=== PATIENT | male | born 1955 | race Caucasian/White ===

== ENCOUNTER 2018-06-29 16:08 | Emergency (ER) | payer MEDICAID ==
[~2018-06-29] VITALS: Ht 162.6 cm; Wt 90.0 kg
[2018-06-29] MEDS ORDERED: LIDOCAINE HCL 2% JELLY 5ML TOP ONE (21:45)
[2018-06-29] MEDS ORDERED: ACETAMINOPHEN WITH CODEINE 300/30MG TABLET PO ONE (23:00)
[2018-06-30 00:29] VITALS: BP 144/76
== END 2018-06-30 00:33 | disposition home or self-care (01) ==
LOC: ER 16:08
DX: K64.9 Unspecified hemorrhoids (principal); N49.2 Inflammatory disorders of scrotum; I10 Essential (primary) hypertension
CPT/HCPCS: 99283

== ENCOUNTER 2018-07-12 13:12 | Emergency (ER) | payer MEDICAID ==
[~2018-07-12] VITALS: Ht 165.1 cm; Wt 84.0 kg
[2018-07-12 13:31] VITALS: BP 141/91
[2018-07-12] MEDS ORDERED: SULFAMETHOXAZOLE/TRIMETHOPRIM 800/160MG TABLET PO ONE (16:00)
[2018-07-12] MEDS ORDERED: HEMORRHOIDAL SUPP PR ONE (16:00)
== END 2018-07-12 16:33 | disposition home or self-care (01) ==
LOC: ER 13:12
DX: K64.8 Other hemorrhoids (principal); K61.0 Anal abscess; I10 Essential (primary) hypertension
CPT/HCPCS: 99283

== ENCOUNTER 2018-09-28 20:45 | Emergency (ER) | payer MEDICAID ==
[~2018-09-28] VITALS: Ht 165.1 cm; Wt 86.0 kg
[2018-09-28] MEDS ORDERED: KETOROLAC 15MG/ML VIAL IM ONE (21:45)
[2018-09-28] MEDS ORDERED: KETOROLAC 30MG/ML VIAL IM ONE (21:45)
[2018-09-28] MEDS ORDERED: METHYLPREDNISOLONE SOD SUCC 125 MG/2 ML VIAL IM ONE (21:45)
[2018-09-28 22:45] VITALS: BP 138/88
== END 2018-09-28 22:45 | disposition home or self-care (01) ==
LOC: ER 20:45
DX: B02.29 Other postherpetic nervous system involvement (principal); I10 Essential (primary) hypertension
CPT/HCPCS: 96372; 99283; J1885; J2930

== ENCOUNTER 2020-03-29 19:54 | Inpatient (IN) | payer MEDICAID ==
[~2020-03-29] VITALS: Ht 152.4 cm; Wt 63.5 kg
[2020-03-29] MEDS ORDERED: IBUPROFEN 600MG TABLET PO ONE (23:30)
[2020-03-30] MEDS ORDERED: ACETAMINOPHEN 325MG TABLET PO ONE ×2 (03:30→09:45)
[2020-03-30] MEDS ORDERED: KETOROLAC 60MG/2ML VIAL IM ONE (17:45)
[2020-03-31] MEDS ORDERED: IBUPROFEN 800MG TABLET PO ONE (09:00)
[2020-03-31] MEDS ORDERED: ACETAMINOPHEN 500MG TABLET PO ONE (09:00)
[2020-03-31 13:43] LABS: BASOPHILS % 1.5 % (0.0-2.0); EOSINOPHILS % 1.7 % (0.0-5.0); HEMATOCRIT. 35.6 % (42.0-52.0); HEMOGLOBIN. 11.7 g/dL (14.0-18.0); MEAN CORPUSCULAR HEMOGLOBIN 27.1 pg (28.0-32.0); MEAN CORPUSCULAR VOLUME 82.2 fL (80.0-94.0); MEAN PLATELET VOLUME 8.2 fl (7.4-10.4); MONOCYTES % 11.5 % (2.0-8.0); NEUTROPHILS % 68.3 % (40.0-76.0); PLATELET 73 x1000/uL (130-400); RED BLOOD CELL COUNT 4.33 mill/uL (4.7-6.1)
[2020-03-31 13:51] LABS: CHLORIDE 93 mEq/L (98-107)
[2020-03-31 13:57] LABS: INR 1.2; PROTHROMBIN TIME 13.4 sec (9.6-11.0)
[2020-03-31] MEDS ORDERED: ONDANSETRON HCL 4MG/2ML INJ IV PRN (15:15)
[2020-03-31] MEDS ORDERED: TRAMADOL 50MG TABLET PO PRN (15:15)
[2020-03-31] MEDS ORDERED: POTASSIUM CHLORIDE 20MEQ TABLET SR PO NR (15:30)
[2020-03-31 17:27] LABS: HEPATITIS B SURFACE ANTIGEN NEGATIVE
[2020-03-31 17:57] LABS: HEPATITIS A AB IGM NEGATIVE (NEGATIVE)
[2020-03-31 18:50] VITALS: BP 114/80
[2020-03-31 20:00] VITALS: BP 137/100
[2020-03-31] MEDS: KETOROLAC 30MG/ML VIAL IV PRN (20:35)
[2020-03-31] MEDS ORDERED: MORPHINE SULFATE 2 MG/ML CPJ (NOT FOR IM USE) IV PRN (23:15)
[2020-04-01] MEDS: SODIUM CHLORIDE 0.9% 1,000 ML IV SCH ×3 (03:04→23:45)
[2020-04-01 04:00] VITALS: BP 100/72
[2020-04-01 08:00] VITALS: BP 112/76
[2020-04-01 12:00] VITALS: BP 96/67
[2020-04-01] MEDS: KETOROLAC 30MG/ML VIAL IV PRN (12:19)
[2020-04-01 16:00] VITALS: BP 111/76
[2020-04-01] MEDS: CHLORDIAZEPOXIDE 25MG CAPSULE PO SCH (17:12)
[2020-04-01 17:38] LABS: HEMATOCRIT. 31.3 % (42.0-52.0); HEMOGLOBIN. 10.4 g/dL (14.0-18.0); MEAN CORPUSCULAR HEMOGLOBIN 27.2 pg (28.0-32.0); MEAN CORPUSCULAR VOLUME 81.7 fL (80.0-94.0); MEAN PLATELET VOLUME 8.3 fl (7.4-10.4); PLATELET 61 x1000/uL (130-400); RED BLOOD CELL COUNT 3.83 mill/uL (4.7-6.1); RED CELL DISTRIBUTION WIDTH 25.5 % (11.6-14.6)
[2020-04-01 17:43] LABS: CHLORIDE 98 mEq/L (98-107)
[2020-04-01 18:03] LABS: PLATELET ESTIMATE DECREASED
[2020-04-01 18:50] LABS: VITAMIN B12 SERUM 782 pg/mL (211-911)
[2020-04-01 19:16] LABS: CLARITY URINE CLOUDY (CLEAR); COLOR URINE ORANGE (YELLOW); KETONES URINE TRACE (NEGATIVE); LEUKOCYTE ESTERASE URINE 1+ (NEGATIVE); NITRITE URINE POSITIVE (NEGATIVE); OCCULT BLOOD URINE NEGATIVE (NEGATIVE); PROTEIN URINE 2+ (NEGATIVE); SPECIFIC GRAVITY URINE 1.027 (1.005-1.030)
[2020-04-01 19:40] LABS: *AMPHETAMINES SCREEN URINE NEGATIVE (NEGATIVE); *BARBITURATES SCREEN URINE NEGATIVE (NEGATIVE); *BENZODIAZEPINES SCREEN URINE PRESUMTIVE POSITIVE (NEGATIVE); *COCAINE SCREEN URINE NEGATIVE (NEGATIVE); CANNABINOID URINE SCREEN NEGATIVE (NEGATIVE); PHENCYCLIDINE URINE SCREEN NEGATIVE (NEGATIVE)
[2020-04-01 19:41] LABS: METHADONE URINE SCREEN NEGATIVE (NEGATIVE); OPIATES URINE SCREEN PRESUMTIVE POSITIVE (NEGATIVE)
[2020-04-01] MEDS ORDERED: POTASSIUM CHLORIDE 20MEQ TABLET SR PO NR (19:53)
[2020-04-01 20:00] VITALS: BP 114/75
[2020-04-02] VITALS: BP 127/90
[2020-04-02] MEDS ORDERED: HALOPERIDOL LACTATE 5MG/ML VIAL IM NR (01:45)
[2020-04-02] MEDS: LORAZEPAM 2MG/ML CPJ IM PRN ×3 (03:38→20:05)
[2020-04-02 04:00] VITALS: BP 156/85
[2020-04-02 08:00] VITALS: BP 150/107
[2020-04-02] MEDS: CHLORDIAZEPOXIDE 25MG CAPSULE PO SCH ×3 (08:38→17:35)
[2020-04-02] MEDS ORDERED: CLONIDINE 0.1MG TABLET PO PRN (10:00)
[2020-04-02] MEDS: AMLODIPINE 10MG TABLET PO SCH (10:35)
[2020-04-02] MEDS: SODIUM CHLORIDE 0.9% 1,000 ML IV SCH (10:46)
[2020-04-02 12:00] VITALS: BP 114/86
[2020-04-02] MEDS ORDERED: VANCOMYCIN HCL 1 GM/VIAL PO SCH (12:00)
[2020-04-02] MEDS: VANCOMYCIN HCL 1000 MG/20 ML ORAL PO SCH ×2 (13:51→17:35)
[2020-04-02] MEDS: KETOROLAC 30MG/ML VIAL IV PRN ×2 (14:03→20:07)
[2020-04-02] MEDS ORDERED: CEFTRIAXONE 1 G PREMIX 50 ML IV SCH (15:00)
[2020-04-02 15:02] LABS: BASOPHILS % 0.9 % (0.0-2.0); EOSINOPHILS % 1.9 % (0.0-5.0); HEMATOCRIT. 32.8 % (42.0-52.0); HEMOGLOBIN. 10.9 g/dL (14.0-18.0); LYMPHOCYTES % 7.7 % (20.0-50.0); MEAN CORPUSCULAR HEMOGLOBIN 27.7 pg (28.0-32.0); MEAN CORPUSCULAR VOLUME 83.2 fL (80.0-94.0); MEAN PLATELET VOLUME 8.3 fl (7.4-10.4); MONOCYTES % 11.5 % (2.0-8.0); PLATELET 97 x1000/uL (130-400); RED BLOOD CELL COUNT 3.95 mill/uL (4.7-6.1); RED CELL DISTRIBUTION WIDTH 25.8 % (11.6-14.6)
[2020-04-02 15:21] LABS: CHLORIDE 103 mEq/L (98-107)
[2020-04-02 16:00] VITALS: BP_SYST 128; BP_SYST 132; BP_DIAS 82; BP_DIAS 94
[2020-04-02 16:02] LABS: PLATELET ESTIMATE DECREASED
[2020-04-02] MEDS ORDERED: POTASSIUM CHLORIDE 20MEQ TABLET SR PO NR (17:00)
[2020-04-02] MEDS ORDERED: POTASSIUM CHLORIDE INJ 40 MEQ in DEXT 5% WATER 500 ML IV NR (18:00)
[2020-04-02 20:00] VITALS: BP 139/103
[2020-04-03] VITALS: BP 133/98
[2020-04-03] MEDS: VANCOMYCIN HCL 1000 MG/20 ML ORAL PO SCH ×4 (01:03→17:29)
[2020-04-03] MEDS: HYDROCODONE/ACETAMINOPHEN 10/325MG TABLET PO PRN ×3 (01:08→18:21)
[2020-04-03 04:00] VITALS: BP 127/95
[2020-04-03 08:00] VITALS: BP 126/86
[2020-04-03] MEDS: CHLORDIAZEPOXIDE 25MG CAPSULE PO SCH ×2 (08:28→12:38)
[2020-04-03] MEDS: AMLODIPINE 10MG TABLET PO SCH (08:29)
[2020-04-03 11:53] VITALS: BP 96/67
[2020-04-03] MEDS: SODIUM CHLORIDE 0.9% 1,000 ML IV SCH (12:44)
[2020-04-03 15:55] LABS: CHLORIDE 105 mEq/L (98-107)
[2020-04-03 16:00] VITALS: BP 86/61
[2020-04-03] MEDS: CEFTRIAXONE 1 G PREMIX 50 ML IV SCH (16:08)
[2020-04-03] MEDS ORDERED: SODIUM CHLORIDE 0.9% 500 ML IV SCH (16:15)
[2020-04-03] MEDS ORDERED: POTASSIUM CHLORIDE 20MEQ TABLET SR PO SCH (17:00)
[2020-04-03] MEDS ORDERED: MAGNESIUM 4 G PREMIX 100 ML IV SCH (18:00)
[2020-04-03 20:00] VITALS: BP 113/71
[2020-04-04] VITALS (8 sets, daily range): BP systolic 123–133; BP diastolic 80–94
[2020-04-04] MEDS: VANCOMYCIN HCL 1000 MG/20 ML ORAL PO SCH ×4 (00:05→17:41)
[2020-04-04] MEDS: SODIUM CHLORIDE 0.9% 1,000 ML IV SCH ×3 (00:07→21:00)
[2020-04-04] MEDS: HYDROCODONE/ACETAMINOPHEN 10/325MG TABLET PO PRN ×4 (00:08→21:20)
[2020-04-04 06:46] LABS: HEMATOCRIT. 32.4 % (42.0-52.0); HEMOGLOBIN. 10.5 g/dL (14.0-18.0); MEAN CORPUSCULAR HEMOGLOBIN 27.1 pg (28.0-32.0); MEAN CORPUSCULAR VOLUME 84.1 fL (80.0-94.0); MEAN PLATELET VOLUME 7.4 fl (7.4-10.4); PLATELET 142 x1000/uL (130-400); RED BLOOD CELL COUNT 3.85 mill/uL (4.7-6.1); RED CELL DISTRIBUTION WIDTH 25.4 % (11.6-14.6)
[2020-04-04 06:49] LABS: CHLORIDE 106 mEq/L (98-107)
[2020-04-04 07:01] LABS: PHOSPHORUS 3.5 mg/dL (2.5-4.9)
[2020-04-04] MEDS ORDERED: POTASSIUM CHLORIDE 20MEQ TABLET SR PO NR (09:00)
[2020-04-04] MEDS: KETOROLAC 30MG/ML VIAL IV PRN (11:44)
[2020-04-04 14:19] LABS: PLATELET ESTIMATE NORMAL
[2020-04-04] MEDS: CEFTRIAXONE 1 G PREMIX 50 ML IV SCH (14:58)
[2020-04-04] MEDS: POTASSIUM CHLORIDE 20MEQ TABLET SR PO SCH (14:58)
[2020-04-05] VITALS: BP 146/85
[2020-04-05] MEDS: LORAZEPAM 2MG/ML CPJ IM PRN (01:41)
[2020-04-05] MEDS: VANCOMYCIN HCL 1000 MG/20 ML ORAL PO SCH ×5 (01:42→23:41)
[2020-04-05 04:00] VITALS: BP 127/90
[2020-04-05] MEDS: SODIUM CHLORIDE 0.9% 1,000 ML IV SCH (07:00)
[2020-04-05 08:00] VITALS: BP 124/88
[2020-04-05] MEDS: POTASSIUM CHLORIDE 20MEQ TABLET SR PO SCH (08:53)
[2020-04-05 12:00] VITALS: BP 130/97
[2020-04-05] MEDS: CEFTRIAXONE 1 G PREMIX 50 ML IV SCH (15:29)
[2020-04-05 16:00] VITALS: BP 110/70
[2020-04-05] MEDS: HYDROCODONE/ACETAMINOPHEN 10/325MG TABLET PO PRN ×2 (18:18→23:40)
[2020-04-05 20:00] VITALS: BP 147/96
[2020-04-06] VITALS: BP 137/95
[2020-04-06 04:00] VITALS: BP 126/82
[2020-04-06] MEDS: HYDROCODONE/ACETAMINOPHEN 10/325MG TABLET PO PRN (05:28)
[2020-04-06] MEDS: SODIUM CHLORIDE 0.9% 1,000 ML IV SCH ×3 (05:32→21:57)
[2020-04-06] MEDS: VANCOMYCIN HCL 1000 MG/20 ML ORAL PO SCH ×3 (05:36→18:45)
[2020-04-06 08:00] VITALS: BP 112/80
[2020-04-06] MEDS: POTASSIUM CHLORIDE 20MEQ TABLET SR PO SCH (08:39)
[2020-04-06 12:00] VITALS: BP 113/86
[2020-04-06] MEDS: CEFTRIAXONE 1 G PREMIX 50 ML IV SCH (15:11)
[2020-04-06] MEDS: ACETAMINOPHEN 325MG TABLET PO PRN ×2 (15:11→22:05)
[2020-04-06 16:00] VITALS: BP 123/93
[2020-04-06 20:00] VITALS: BP 151/97
[2020-04-07] VITALS: BP 153/97
[2020-04-07] MEDS: VANCOMYCIN HCL 1000 MG/20 ML ORAL PO SCH ×4 (01:30→17:39)
[2020-04-07 04:00] VITALS: BP 123/85
[2020-04-07] MEDS: ACETAMINOPHEN 325MG TABLET PO PRN ×3 (05:11→17:39)
[2020-04-07 08:00] VITALS: BP 118/78
[2020-04-07] MEDS: POTASSIUM CHLORIDE 20MEQ TABLET SR PO SCH (09:12)
[2020-04-07] MEDS: SODIUM CHLORIDE 0.9% 1,000 ML IV SCH ×2 (09:14→21:00)
[2020-04-07 12:00] VITALS: BP 120/83
[2020-04-07 16:00] VITALS: BP 105/78
[2020-04-07 20:00] VITALS: BP 155/105
[2020-04-07] MEDS: KETOROLAC 30MG/ML VIAL IV PRN (23:01)
[2020-04-08] VITALS: BP 139/93
[2020-04-08] MEDS: VANCOMYCIN HCL 1000 MG/20 ML ORAL PO SCH ×4 (00:15→18:31)
[2020-04-08 04:00] VITALS: BP 124/89
[2020-04-08] MEDS: SODIUM CHLORIDE 0.9% 1,000 ML IV SCH ×2 (05:00→15:00)
[2020-04-08 08:00] VITALS: BP 149/97
[2020-04-08] MEDS: POTASSIUM CHLORIDE 20MEQ TABLET SR PO SCH (09:46)
[2020-04-08] MEDS: KETOROLAC 30MG/ML VIAL IV PRN ×2 (09:49→18:01)
[2020-04-08 12:00] VITALS: BP 135/91
[2020-04-08 16:00] VITALS: BP 149/99
[2020-04-08 20:00] VITALS: BP 138/90
[2020-04-08] MEDS: HYDROCODONE/ACETAMINOPHEN 10/325MG TABLET PO PRN (21:03)
[2020-04-09] VITALS: BP 145/98
[2020-04-09] MEDS: VANCOMYCIN HCL 1000 MG/20 ML ORAL PO SCH ×3 (00:20→14:14)
[2020-04-09] MEDS: HYDROCODONE/ACETAMINOPHEN 10/325MG TABLET PO PRN ×3 (03:25→16:56)
[2020-04-09] MEDS: SODIUM CHLORIDE 0.9% 1,000 ML IV SCH ×3 (03:29→21:07)
[2020-04-09 04:00] VITALS: BP 138/93
[2020-04-09 08:00] VITALS: BP 128/90
[2020-04-09] MEDS: POTASSIUM CHLORIDE 20MEQ TABLET SR PO SCH (09:52)
[2020-04-09 12:00] VITALS: BP 111/79
[2020-04-09 16:00] VITALS: BP 121/82
[2020-04-09 20:00] VITALS: BP 124/86
[2020-04-09] MEDS: KETOROLAC 30MG/ML VIAL IV PRN (21:07)
[2020-04-10] VITALS: BP 129/100
[2020-04-10] MEDS: HYDROCODONE/ACETAMINOPHEN 10/325MG TABLET PO PRN ×4 (00:38→21:31)
[2020-04-10 04:00] VITALS: BP 120/78
[2020-04-10] MEDS: SODIUM CHLORIDE 0.9% 1,000 ML IV SCH ×2 (06:08→17:16)
[2020-04-10 08:00] VITALS: BP 109/82
[2020-04-10] MEDS: POTASSIUM CHLORIDE 20MEQ TABLET SR PO SCH (08:41)
[2020-04-10 16:00] VITALS: BP 116/82
[2020-04-10 20:00] VITALS: BP 113/78
[2020-04-11] VITALS: BP 106/71
[2020-04-11] MEDS: SODIUM CHLORIDE 0.9% 1,000 ML IV SCH ×2 (03:35→12:14)
[2020-04-11] MEDS: HYDROCODONE/ACETAMINOPHEN 10/325MG TABLET PO PRN ×4 (03:55→22:14)
[2020-04-11 04:00] VITALS: BP 145/94
[2020-04-11 08:00] VITALS: BP 104/73
[2020-04-11] MEDS: POTASSIUM CHLORIDE 20MEQ TABLET SR PO SCH (09:53)
[2020-04-11 12:00] VITALS: BP 99/59
[2020-04-11 16:00] VITALS: BP 106/74
[2020-04-11 20:00] VITALS: BP 114/84
[2020-04-12] VITALS: BP 135/89
[2020-04-12 04:00] VITALS: BP 102/72
[2020-04-12] MEDS: HYDROCODONE/ACETAMINOPHEN 10/325MG TABLET PO PRN ×2 (04:31→12:18)
[2020-04-12 08:00] VITALS: BP 120/81
[2020-04-12] MEDS: POTASSIUM CHLORIDE 20MEQ TABLET SR PO SCH (08:48)
[2020-04-12] MEDS: SODIUM CHLORIDE 0.9% 1,000 ML IV SCH ×2 (08:49→19:00)
[2020-04-12 12:00] VITALS: BP 116/77
[2020-04-12 16:00] VITALS: BP 95/53
[2020-04-12 20:00] VITALS: BP 101/66
[2020-04-12] MEDS: KETOROLAC 30MG/ML VIAL IV PRN (21:16)
[2020-04-13] VITALS: BP 117/74
[2020-04-13 04:00] VITALS: BP 116/70
[2020-04-13 08:00] VITALS: BP 133/80
[2020-04-13] MEDS: POTASSIUM CHLORIDE 20MEQ TABLET SR PO SCH (08:23)
[2020-04-13] MEDS: ACETAMINOPHEN 325MG TABLET PO PRN (08:23)
[2020-04-13] MEDS ORDERED: KETOROLAC 30MG/ML VIAL IV PRN (10:30)
[2020-04-13 12:00] VITALS: BP 125/88
[2020-04-13] MEDS: HYDROCODONE/ACETAMINOPHEN 10/325MG TABLET PO PRN ×2 (12:03→18:28)
[2020-04-13] MEDS: SODIUM CHLORIDE 0.9% 1,000 ML IV SCH (15:23)
[2020-04-13 16:00] VITALS: BP 111/88
[2020-04-13 20:00] VITALS: BP 128/82
[2020-04-14] VITALS: BP 95/62
[2020-04-14] MEDS: HYDROCODONE/ACETAMINOPHEN 10/325MG TABLET PO PRN ×4 (00:33→20:16)
[2020-04-14 04:00] VITALS: BP 125/87
[2020-04-14 08:00] VITALS: BP 118/80
[2020-04-14] MEDS: POTASSIUM CHLORIDE 20MEQ TABLET SR PO SCH (09:21)
[2020-04-14 12:00] VITALS: BP 104/71
[2020-04-14 16:00] VITALS: BP 115/82
[2020-04-14 20:00] VITALS: BP 105/73
[2020-04-15] MEDS: HYDROCODONE/ACETAMINOPHEN 10/325MG TABLET PO PRN ×4 (02:36→23:03)
[2020-04-15 04:00] VITALS: BP 118/79
[2020-04-15 08:00] VITALS: BP 103/55
[2020-04-15] MEDS: POTASSIUM CHLORIDE 20MEQ TABLET SR PO SCH (09:45)
[2020-04-15 12:00] VITALS: BP 74/66
[2020-04-15 13:26] LABS: CHLORIDE 100 mEq/L (98-107)
[2020-04-15 16:00] VITALS: BP 117/51
[2020-04-15 20:30] VITALS: BP 112/70
[2020-04-16] VITALS: BP 102/63
[2020-04-16] MEDS: SODIUM CHLORIDE 0.9% 1,000 ML IV SCH ×3 (03:21→23:34)
[2020-04-16 04:00] VITALS: BP 115/77
[2020-04-16] MEDS: HYDROCODONE/ACETAMINOPHEN 10/325MG TABLET PO PRN ×3 (05:38→18:51)
[2020-04-16 08:00] VITALS: BP 112/83
[2020-04-16 12:00] VITALS: BP 112/68
[2020-04-16 16:00] VITALS: BP 120/73
[2020-04-16 20:00] VITALS: BP 97/63
[2020-04-17] VITALS (7 sets, daily range): BP systolic 98–148; BP diastolic 65–84
[2020-04-17] MEDS: HYDROCODONE/ACETAMINOPHEN 10/325MG TABLET PO PRN ×4 (00:53→20:28)
[2020-04-17] MEDS: SODIUM CHLORIDE 0.9% 1,000 ML IV SCH (09:16)
[2020-04-18] VITALS: BP 110/75
[2020-04-18] MEDS: HYDROCODONE/ACETAMINOPHEN 10/325MG TABLET PO PRN ×3 (02:39→18:27)
[2020-04-18 04:00] VITALS: BP 105/71
[2020-04-18] MEDS: SODIUM CHLORIDE 0.9% 1,000 ML IV SCH (05:00)
[2020-04-18 08:00] VITALS: BP 123/81
[2020-04-18 12:00] VITALS: BP 111/66
[2020-04-18 16:00] VITALS: BP 107/69
[2020-04-18 20:00] VITALS: BP 113/65
[2020-04-19] VITALS: BP 114/72
[2020-04-19] MEDS: HYDROCODONE/ACETAMINOPHEN 10/325MG TABLET PO PRN ×3 (01:29→15:25)
[2020-04-19 04:00] VITALS: BP 110/77
[2020-04-19 08:00] VITALS: BP 124/81
[2020-04-19 12:00] VITALS: BP 110/79
[2020-04-19 16:00] VITALS: BP 90/55
[2020-04-19 20:00] VITALS: BP 93/55
[2020-04-19] MEDS: SODIUM CHLORIDE 0.9% 1,000 ML IV SCH (21:58)
[2020-04-19] MEDS: ACETAMINOPHEN 325MG TABLET PO PRN (22:12)
[2020-04-20] VITALS: BP 102/56
[2020-04-20] MEDS: HYDROCODONE/ACETAMINOPHEN 10/325MG TABLET PO PRN ×2 (01:56→09:52)
[2020-04-20 04:00] VITALS: BP 112/77
[2020-04-20 08:00] VITALS: BP 120/85
[2020-04-20] MEDS: SODIUM CHLORIDE 0.9% 1,000 ML IV SCH (09:52)
[2020-04-20 12:00] VITALS: BP 91/56
[2020-04-20 16:00] VITALS: BP 94/58
[2020-04-20 20:00] VITALS: BP 105/72
[2020-04-21] VITALS (8 sets, daily range): BP systolic 103–136; BP diastolic 72–92
[2020-04-21] MEDS: ACETAMINOPHEN 325MG TABLET PO PRN (04:54)
[2020-04-21] MEDS: HYDROCODONE/ACETAMINOPHEN 10/325MG TABLET PO PRN ×3 (08:42→22:25)
[2020-04-21] MEDS: SODIUM CHLORIDE 0.9% 1,000 ML IV SCH (20:00)
[2020-04-22 04:00] VITALS: BP 121/85
[2020-04-22] MEDS: HYDROCODONE/ACETAMINOPHEN 10/325MG TABLET PO PRN ×4 (04:29→23:10)
[2020-04-22 08:00] VITALS: BP 101/72
[2020-04-22] MEDS: SODIUM CHLORIDE 0.9% 1,000 ML IV SCH ×2 (09:00→19:00)
[2020-04-22 12:00] VITALS: BP 113/71
[2020-04-22 16:00] VITALS: BP 108/74
[2020-04-22 20:00] VITALS: BP 102/63
[2020-04-23] VITALS (7 sets, daily range): BP systolic 96–122; BP diastolic 61–88
[2020-04-23] MEDS: SODIUM CHLORIDE 0.9% 1,000 ML IV SCH ×2 (01:00→05:00)
[2020-04-23] MEDS: HYDROCODONE/ACETAMINOPHEN 10/325MG TABLET PO PRN ×3 (05:28→20:14)
[2020-04-24] VITALS: BP 118/65
[2020-04-24 08:00] VITALS: BP 116/85
[2020-04-24] MEDS: HYDROCODONE/ACETAMINOPHEN 10/325MG TABLET PO PRN ×2 (10:33→17:11)
[2020-04-24 12:00] VITALS: BP 105/65
[2020-04-24 16:00] VITALS: BP 106/67
[2020-04-24 20:00] VITALS: BP 98/58
[2020-04-24 21:32] VITALS: BP 108/62
== END 2020-04-24 22:12 | disposition home or self-care (01) | DRG 463 ==
LOC: ER 20:01 → MICUSO 03-31 12:24 → 6EST 03-31 18:46
PROVIDERS: ADMIT Internal Medicine; ATTEND Internal Medicine
DX: N39.0 Urinary tract infection, site not specified (principal); D69.6 Thrombocytopenia, unspecified; E87.8 Other disorders of electrolyte and fluid balance, not elsewhere classified; E87.1 Hypo-osmolality and hyponatremia; E83.51 Hypocalcemia; T74.01XA Adult neglect or abandonment, confirmed, initial encounter; E87.6 Hypokalemia; F03.90 Unspecified dementia, unspecified severity, without behavioral disturbance, psychotic disturbance, mood disturbance, and anxiety; D64.9 Anemia, unspecified; F10.20 Alcohol dependence, uncomplicated; G89.29 Other chronic pain; I10 Essential (primary) hypertension; B96.89 Other specified bacterial agents as the cause of diseases classified elsewhere; E51.2 Wernicke's encephalopathy; R74.0 Nonspecific elevation of levels of transaminase and lactic acid dehydrogenase [LDH]; Z68.27 Body mass index [BMI] 27.0-27.9, adult; Z03.818 Encounter for observation for suspected exposure to other biological agents ruled out; Z59.0 Homelessness
CPT/HCPCS: 36415; 71045; 80048; 80053; 80305; 81003; 82607; 83735; 84100; 84145; 84443; 84484; 85025; 86705; 86709; 86803; 87340; 87493; 93970; 95816; 96372; 97110; 97116; 97162; 97166; 97530; 97535; 99285; J0696; J1630; J1885; J2060; J2270; J3370; J3475; J3480; J7030; J7060; U0003-CS

== ENCOUNTER 2020-05-02 08:19 | Emergency (ER) | payer MEDICAID ==
[~2020-05-02] VITALS: Ht 172.7 cm; Wt 71.0 kg
[2020-05-02 08:25] VITALS: BP 130/91
[2020-07-25] MEDS ORDERED: FOLI-43 MT (13:59)
[2020-07-25] MEDS ORDERED: FERR325T23 PO (13:59)
[2020-07-25] MEDS ORDERED: DOCU250C14 PO (13:59)
[2020-07-25] MEDS ORDERED: THIA100T88 MT (13:59)
== END 2020-05-02 10:10 | disposition home or self-care (01) ==
LOC: ER 08:19
DX: G89.29 Other chronic pain (principal); M25.562 Pain in left knee; I10 Essential (primary) hypertension
CPT/HCPCS: 99283

== ENCOUNTER 2020-05-03 08:52 | Emergency (ER) | payer MEDICAID ==
[~2020-05-03] VITALS: Ht 165.1 cm; Wt 68.0 kg
[2020-05-03] MEDS ORDERED: ACETAMINOPHEN 325MG TABLET PO STA (09:14)
[2020-05-03] MEDS ORDERED: BACITRACIN ZINC OINT UDPKT TOP ONE (09:15)
[2020-05-03] MEDS ORDERED: LIDOCAINE HCL/PF 1% 10 MG/ML 5ML VIAL IJ ONE (09:15)
[2020-05-03] MEDS ORDERED: TETANUS, DIPHTHERIA, PERTUSSIS VAC/PF 0.5ML (>7YR OLD) IM ONE (09:15)
[2020-05-03] MEDS ORDERED: IBUPROFEN 600MG TABLET PO ONE (19:00)
[2020-05-03 19:11] VITALS: BP 128/85
== END 2020-05-03 19:38 | disposition home or self-care (01) ==
LOC: ER 09:03
DX: F10.129 Alcohol abuse with intoxication, unspecified (principal); Y90.8 Blood alcohol level of 240 mg/100 ml or more; S01.21XA Laceration without foreign body of nose, initial encounter; W01.0XXA Fall on same level from slipping, tripping and stumbling without subsequent striking against object, initial encounter; Y93.01 Activity, walking, marching and hiking; Y92.9 Unspecified place or not applicable; J45.909 Unspecified asthma, uncomplicated; I10 Essential (primary) hypertension; F17.200 Nicotine dependence, unspecified, uncomplicated; M19.90 Unspecified osteoarthritis, unspecified site
CPT/HCPCS: 12011; 36415; 70450; 73080; 80320; 90471; 90715; 99285; J3490; G0480

== ENCOUNTER 2020-06-15 21:11 | Emergency (ER) | payer MEDICAID ==
[~2020-06-15] VITALS: Ht 157.5 cm; Wt 73.0 kg
[2020-06-15 23:16] LABS: BASOPHILS % 0.8 % (0.0-2.0); EOSINOPHILS % 3.1 % (0.0-5.0); HEMATOCRIT. 29.5 % (42.0-52.0); HEMOGLOBIN. 9.6 g/dL (14.0-18.0); LYMPHOCYTES % 18.6 % (20.0-50.0); MEAN CORPUSCULAR VOLUME 85.7 fL (80.0-94.0); MEAN PLATELET VOLUME 6.4 fl (7.4-10.4); MONOCYTES % 9.5 % (2.0-8.0); PLATELET 485 x1000/uL (130-400); RED BLOOD CELL COUNT 3.44 mill/uL (4.7-6.1); RED CELL DISTRIBUTION WIDTH 20.3 % (11.6-14.6)
[2020-06-15 23:22] LABS: CHLORIDE 111 mEq/L (98-107)
[2020-06-15 23:28] LABS: ETHANOL BLOOD 164 mg/dL
[2020-06-16] MEDS ORDERED: POTASSIUM CHLORIDE 20MEQ TABLET SR PO ONE (00:15)
[2020-06-16] MEDS ORDERED: ACETAMINOPHEN 325MG TABLET PO SCH (01:16)
[2020-06-16] MEDS ORDERED: BACITRACIN ZINC OINT UDPKT TOP SCH (01:30)
[2020-06-16] MEDS ORDERED: IBUPROFEN 600MG TABLET PO STA (03:02)
[2020-06-16 05:49] VITALS: BP 122/72
[2020-07-25] MEDS ORDERED: FOLI-43 MT (13:59)
[2020-07-25] MEDS ORDERED: FERR325T23 PO (13:59)
[2020-07-25] MEDS ORDERED: DOCU250C14 PO (13:59)
[2020-07-25] MEDS ORDERED: THIA100T88 MT (13:59)
== END 2020-06-16 09:31 | disposition home or self-care (01) ==
LOC: ER 21:11
DX: S80.02XA Contusion of left knee, initial encounter (principal); S80.212A Abrasion, left knee, initial encounter; M19.90 Unspecified osteoarthritis, unspecified site; J45.909 Unspecified asthma, uncomplicated; I10 Essential (primary) hypertension; F10.20 Alcohol dependence, uncomplicated; Y90.6 Blood alcohol level of 120-199 mg/100 ml; D64.9 Anemia, unspecified; Z59.0 Homelessness; W01.0XXA Fall on same level from slipping, tripping and stumbling without subsequent striking against object, initial encounter; Y93.89 Activity, other specified; Y92.89 Other specified places as the place of occurrence of the external cause
CPT/HCPCS: 36415; 73562; 80048; 80320; 85025; 93005; 99284; G0480

== ENCOUNTER 2020-06-21 20:28 | Emergency (ER) | payer MEDICAID ==
[~2020-06-21] VITALS: Ht 165.1 cm; Wt 75.5 kg
[2020-06-21] MEDS ORDERED: IBUPROFEN 800MG TABLET PO ONE (21:00)
[2020-06-22] MEDS ORDERED: ACETAMINOPHEN 325MG TABLET PO ONE (00:45)
[2020-06-22 06:46] VITALS: BP 118/78
[2020-07-25] MEDS ORDERED: THIA100T88 MT (13:59)
[2020-07-25] MEDS ORDERED: DOCU250C14 PO (13:59)
[2020-07-25] MEDS ORDERED: FERR325T23 PO (13:59)
[2020-07-25] MEDS ORDERED: FOLI-43 MT (13:59)
== END 2020-06-22 06:48 | disposition home or self-care (01) ==
LOC: ER 20:28
DX: M79.18 Myalgia, other site (principal); M79.604 Pain in right leg; M79.605 Pain in left leg; J45.909 Unspecified asthma, uncomplicated; I10 Essential (primary) hypertension; F10.229 Alcohol dependence with intoxication, unspecified; Y90.0 Blood alcohol level of less than 20 mg/100 ml
CPT/HCPCS: 93005; 99285

== ENCOUNTER 2020-07-07 19:36 | Emergency (ER) | payer MEDICAID ==
[~2020-07-07] VITALS: Ht 167.6 cm; Wt 87.0 kg
[2020-07-07 19:38] VITALS: BP 114/76
[2020-07-07] MEDS ORDERED: IBUPROFEN 600MG TABLET PO ONE (20:15)
== END 2020-07-07 22:27 | disposition home or self-care (01) ==
LOC: ER 19:36
DX: M25.562 Pain in left knee (principal); M25.561 Pain in right knee; G89.29 Other chronic pain; I10 Essential (primary) hypertension
CPT/HCPCS: 99283

== ENCOUNTER 2020-09-19 16:03 | Emergency (ER) | payer MEDICAID ==
[~2020-09-19] VITALS: Ht 165.1 cm; Wt 77.0 kg
[~2020-09-19 16:03] MED LIST: DOCU250C14 PO; FERR325T23 PO; FOLI-43 MT; THIA100T88 MT
[2020-09-19 16:11] VITALS: BP 146/72
== END 2020-09-19 18:18 | disposition home or self-care (01) ==
LOC: ER 16:03
DX: R10.9 Unspecified abdominal pain (principal); Z53.21 Procedure and treatment not carried out due to patient leaving prior to being seen by health care provider

== ENCOUNTER 2020-09-19 19:43 | Emergency (ER) | payer MEDICAID ==
[~2020-09-19] VITALS: Ht 170.2 cm; Wt 78.0 kg
[2020-09-19 19:54] VITALS: BP 116/71
[2020-09-19] MEDS ORDERED: MAGNESIUM/ALUMINUM HYDROXIDE/SIMETHICONE 30ML UDC PO STA (21:52)
[2020-09-19] MEDS ORDERED: VISCOUS LIDOCAINE 2% 15 ML UDC PO STA (21:52)
[2020-09-19] MEDS ORDERED: FAMOTIDINE 20MG TABLET PO ONE (22:00)
[2020-09-19 22:58] LABS: BASOPHILS % 1.8 % (0.0-2.0); HEMATOCRIT. 34.4 % (42.0-52.0); HEMOGLOBIN. 11.1 g/dL (14.0-18.0); LYMPHOCYTES % 33.9 % (20.0-50.0); MEAN CORPUSCULAR HEMOGLOBIN 27.2 pg (28.0-32.0); MEAN CORPUSCULAR VOLUME 83.9 fL (80.0-94.0); MEAN PLATELET VOLUME 6.6 fl (7.4-10.4); MONOCYTES % 12.3 % (2.0-8.0); PLATELET 205 x1000/uL (130-400); RED CELL DISTRIBUTION WIDTH 22.5 % (11.6-14.6)
[2020-09-19 23:04] LABS: CHLORIDE 106 mEq/L (98-107)
[2020-09-19 23:45] LABS: CLARITY URINE CLEAR (CLEAR); COLOR URINE YELLOW (YELLOW); KETONES URINE NEGATIVE (NEGATIVE); LEUKOCYTE ESTERASE URINE NEGATIVE (NEGATIVE); NITRITE URINE NEGATIVE (NEGATIVE); OCCULT BLOOD URINE NEGATIVE (NEGATIVE); PROTEIN URINE 2+ (NEGATIVE); SPECIFIC GRAVITY URINE 1.017 (1.005-1.030)
[2020-09-19 23:50] LABS: ETHANOL BLOOD 310 mg/dL
[2020-09-20] LABS: *AMPHETAMINES SCREEN URINE NEGATIVE (NEGATIVE); *BARBITURATES SCREEN URINE NEGATIVE (NEGATIVE)
[2020-09-20 00:01] LABS: *BENZODIAZEPINES SCREEN URINE NEGATIVE (NEGATIVE); *COCAINE SCREEN URINE NEGATIVE (NEGATIVE); CANNABINOID URINE SCREEN NEGATIVE (NEGATIVE); METHADONE URINE SCREEN NEGATIVE (NEGATIVE); OPIATES URINE SCREEN NEGATIVE (NEGATIVE); PHENCYCLIDINE URINE SCREEN NEGATIVE (NEGATIVE)
[2020-09-20 04:49] LABS: PLATELET ESTIMATE NORMAL
== END 2020-09-20 01:02 | disposition home or self-care (01) ==
LOC: ER 19:43
DX: R10.9 Unspecified abdominal pain (principal); F10.129 Alcohol abuse with intoxication, unspecified; Y90.8 Blood alcohol level of 240 mg/100 ml or more; M19.90 Unspecified osteoarthritis, unspecified site
CPT/HCPCS: 36415; 71045; 74176; 80053; 80305; 80320; 81003; 85025; 93005; 99285; G0480

== ENCOUNTER 2020-10-16 16:31 | Emergency (ER) | payer MEDICAID ==
[~2020-10-16] VITALS: Ht 165.1 cm; Wt 70.0 kg
[2020-10-16] MEDS ORDERED: MAGNESIUM/ALUMINUM HYDROXIDE/SIMETHICONE 30ML UDC PO ONE (20:30)
[2020-10-16] MEDS ORDERED: ACETAMINOPHEN 325MG TABLET PO ONE (20:30)
[2020-10-16 20:57] VITALS: BP 122/86
== END 2020-10-16 21:05 | disposition home or self-care (01) ==
LOC: ER 16:36
DX: G89.29 Other chronic pain (principal); R10.84 Generalized abdominal pain; M25.562 Pain in left knee; M25.561 Pain in right knee; I10 Essential (primary) hypertension; M19.90 Unspecified osteoarthritis, unspecified site; J45.909 Unspecified asthma, uncomplicated; F10.20 Alcohol dependence, uncomplicated; Z59.0 Homelessness
CPT/HCPCS: 99283

== ENCOUNTER 2021-04-14 15:51 | Emergency (ER) | payer MEDICAID, OTHER ==
[~2021-04-14] VITALS: Ht 170.2 cm; Wt 80.0 kg
[2021-04-14] MEDS ORDERED: HYDROCODONE/ACETAMINOPHEN 5/325MG TABLET PO ONE (17:30)
[2021-04-14] MEDS ORDERED: KETOROLAC 60MG/2ML VIAL IM ONE (17:30)
[2021-04-14 18:56] VITALS: BP 119/63
[2021-04-15] MEDS ORDERED: IBUP-2029 MT (11:03)
== END 2021-04-14 19:33 | disposition home or self-care (01) ==
LOC: ER 15:51
DX: S80.212A Abrasion, left knee, initial encounter (principal); S80.211A Abrasion, right knee, initial encounter; M17.0 Bilateral primary osteoarthritis of knee; I10 Essential (primary) hypertension; J45.909 Unspecified asthma, uncomplicated; Z79.899 Other long term (current) drug therapy; W18.39XA Other fall on same level, initial encounter; Y93.89 Activity, other specified; Y92.89 Other specified places as the place of occurrence of the external cause; Y99.8 Other external cause status
CPT/HCPCS: 73080; 73560; 96372; 99284; J1885

== ENCOUNTER 2021-04-15 08:34 | Emergency (ER) | payer MEDICAID ==
[~2021-04-15] VITALS: Ht 157.5 cm; Wt 70.0 kg
[2021-04-15 08:37] VITALS: BP 124/98
[2021-04-15] MEDS ORDERED: IBUPROFEN 600MG TABLET PO ONE (09:15)
[2021-04-15] MEDS ORDERED: IBUP-2029 MT (11:03)
== END 2021-04-15 11:35 | disposition home or self-care (01) ==
LOC: ER 08:34
DX: M79.652 Pain in left thigh (principal); M79.651 Pain in right thigh; Z00.00 Encounter for general adult medical examination without abnormal findings; J45.909 Unspecified asthma, uncomplicated; I10 Essential (primary) hypertension; M19.90 Unspecified osteoarthritis, unspecified site; Z98.890 Other specified postprocedural states
CPT/HCPCS: 93970; 99284; A4217; Z7610

== ENCOUNTER 2021-04-15 15:25 | Inpatient (IN) | payer MEDICAID, OTHER ==
[~2021-04-15] VITALS: Ht 165.1 cm; Wt 81.2 kg
[~2021-04-15 15:25] MED LIST changes: +IBUP-2029 MT
[2021-04-15 16:15] LABS: BASOPHILS % 1.4 % (0.0-2.0); CHLORIDE 97 mEq/L (98-107); EOSINOPHILS % 0.4 % (0.0-5.0); HEMATOCRIT. 35.9 % (42.0-52.0); HEMOGLOBIN. 12.3 g/dL (14.0-18.0); LYMPHOCYTES % 10.1 % (20.0-50.0); MONOCYTES % 9.6 % (2.0-8.0); NEUTROPHILS % 78.5 % (40.0-76.0); PLATELET 93 x1000/uL (130-400); RED BLOOD CELL COUNT 4.09 mill/uL (4.7-6.1); RED CELL DISTRIBUTION WIDTH 18.2 % (11.6-14.6)
[2021-04-15] MEDS ORDERED: SODIUM CHLORIDE 0.9% 1,000 ML IV ONE (16:15)
[2021-04-15] MEDS ORDERED: LORAZEPAM 2MG/ML CPJ IV ONE (16:15)
[2021-04-15 16:19] LABS: ETHANOL BLOOD < 10 mg/dL
[2021-04-15 16:21] LABS: CLARITY URINE CLEAR (CLEAR); COLOR URINE YELLOW (YELLOW); KETONES URINE 1+ (NEGATIVE); LEUKOCYTE ESTERASE URINE NEGATIVE (NEGATIVE); NITRITE URINE NEGATIVE (NEGATIVE); OCCULT BLOOD URINE 1+ (NEGATIVE); PROTEIN URINE 3+ (NEGATIVE); SPECIFIC GRAVITY URINE 1.014 (1.005-1.030)
[2021-04-15] MEDS ORDERED: IBUPROFEN 600MG TABLET PO ONE (17:15)
[2021-04-15] MEDS ORDERED: CHLORDIAZEPOXIDE 25MG CAPSULE PO ONE ×2 (17:15→18:45)
[2021-04-15] MEDS ORDERED: POTASSIUM CHLORIDE 20MEQ TABLET SR PO ONE (17:15)
[2021-04-15 17:28] LABS: *AMPHETAMINES SCREEN URINE NEGATIVE (NEGATIVE); *BARBITURATES SCREEN URINE NEGATIVE (NEGATIVE); *BENZODIAZEPINES SCREEN URINE NEGATIVE (NEGATIVE); *COCAINE SCREEN URINE NEGATIVE (NEGATIVE)
[2021-04-15 17:29] LABS: CANNABINOID URINE SCREEN NEGATIVE (NEGATIVE); METHADONE URINE SCREEN NEGATIVE (NEGATIVE); OPIATES URINE SCREEN PRESUMTIVE POSITIVE (NEGATIVE); PHENCYCLIDINE URINE SCREEN NEGATIVE (NEGATIVE)
[2021-04-15] MEDS ORDERED: FOLIC ACID 1 MG, THIAMINE HCL 100 MG, MVI, ADULT NO.1 10 ML in DEXTROSE 5% WATER 1,000 ML IV ONE (20:15)
[2021-04-15] MEDS: CHLORDIAZEPOXIDE 25MG CAPSULE PO SCH (22:18)
[2021-04-15] MEDS: LORAZEPAM 2MG/ML CPJ IV PRN (23:30)
[2021-04-15] MEDS: TRAMADOL 50MG TABLET PO PRN (23:30)
[2021-04-16] VITALS: BP 138/89
[2021-04-16 01:00] VITALS: BP 138/89
[2021-04-16 04:00] VITALS: BP 134/95
[2021-04-16] MEDS: CHLORDIAZEPOXIDE 25MG CAPSULE PO SCH ×3 (06:50→21:24)
[2021-04-16 08:00] VITALS: BP 132/81
[2021-04-16 08:31] LABS: BASOPHILS % 1.1 % (0.0-2.0); EOSINOPHILS % 4.8 % (0.0-5.0); HEMATOCRIT. 30.9 % (42.0-52.0); HEMOGLOBIN. 10.6 g/dL (14.0-18.0); LYMPHOCYTES % 16.4 % (20.0-50.0); MEAN CORPUSCULAR HEMOGLOBIN 29.8 pg (28.0-32.0); MEAN CORPUSCULAR VOLUME 87.2 fL (80.0-94.0); MEAN PLATELET VOLUME 7.1 fl (7.4-10.4); MONOCYTES % 10.1 % (2.0-8.0); NEUTROPHILS % 67.6 % (40.0-76.0); PLATELET 69 x1000/uL (130-400); RED BLOOD CELL COUNT 3.54 mill/uL (4.7-6.1)
[2021-04-16 08:38] LABS: CHLORIDE 97 mEq/L (98-107)
[2021-04-16 08:46] LABS: LDL CHOLESTEROL 38 mg/dL (5-100)
[2021-04-16 08:47] LABS: HDL CHOLESTEROL 89 mg/dL (40-59)
[2021-04-16] MEDS: ENOXAPARIN 40MG/0.4ML SYR SUBCUT SCH (09:00)
[2021-04-16] MEDS: AMLODIPINE 5MG TABLET PO SCH (09:47)
[2021-04-16 12:00] VITALS: BP 128/88
[2021-04-16] MEDS: ACETAMINOPHEN 325MG TABLET PO PRN ×2 (12:21→18:50)
[2021-04-16] MEDS ORDERED: POTASSIUM CHLORIDE 20MEQ TABLET SR PO NR (16:00)
[2021-04-16 20:00] VITALS: BP 136/98
[2021-04-17] VITALS: BP 140/98
[2021-04-17 04:00] VITALS: BP 133/88
[2021-04-17] MEDS: CHLORDIAZEPOXIDE 25MG CAPSULE PO SCH ×3 (06:17→21:19)
[2021-04-17] MEDS: ACETAMINOPHEN 325MG TABLET PO PRN ×3 (06:17→21:19)
[2021-04-17 08:00] VITALS: BP 133/97
[2021-04-17] MEDS: AMLODIPINE 5MG TABLET PO SCH (08:49)
[2021-04-17] MEDS: ENOXAPARIN 40MG/0.4ML SYR SUBCUT SCH (08:54)
[2021-04-17] MEDS: TRAMADOL 50MG TABLET PO PRN ×2 (09:01→15:59)
[2021-04-17] MEDS: NYSTATIN POWDER 15GM TOP SCH ×3 (11:15→17:47)
[2021-04-17 11:48] LABS: EOSINOPHILS % 4.9 % (0.0-5.0); HEMATOCRIT. 33.4 % (42.0-52.0); HEMOGLOBIN. 11.5 g/dL (14.0-18.0); LYMPHOCYTES % 11.2 % (20.0-50.0); MEAN CORPUSCULAR HEMOGLOBIN 29.7 pg (28.0-32.0); MEAN CORPUSCULAR VOLUME 86.6 fL (80.0-94.0); MEAN PLATELET VOLUME 7.3 fl (7.4-10.4); MONOCYTES % 9.9 % (2.0-8.0); PLATELET 101 x1000/uL (130-400); RED BLOOD CELL COUNT 3.86 mill/uL (4.7-6.1); RED CELL DISTRIBUTION WIDTH 19.1 % (11.6-14.6)
[2021-04-17 11:59] LABS: CHLORIDE 99 mEq/L (98-107)
[2021-04-17 12:00] VITALS: BP 120/88
[2021-04-17] MEDS ORDERED: POTASSIUM CHLORIDE 20MEQ TABLET SR PO NR (14:00)
[2021-04-17 16:00] VITALS: BP 132/91
[2021-04-17 20:00] VITALS: BP 119/86
[2021-04-18] VITALS: BP 125/96
[2021-04-18 04:00] VITALS: BP 131/97
[2021-04-18] MEDS: CHLORDIAZEPOXIDE 25MG CAPSULE PO SCH ×3 (05:09→21:47)
[2021-04-18] MEDS: TRAMADOL 50MG TABLET PO PRN ×2 (05:26→15:03)
[2021-04-18 08:00] VITALS: BP 108/75
[2021-04-18] MEDS: NYSTATIN POWDER 15GM TOP SCH ×3 (09:00→17:47)
[2021-04-18] MEDS: ENOXAPARIN 40MG/0.4ML SYR SUBCUT SCH (09:26)
[2021-04-18] MEDS: AMLODIPINE 5MG TABLET PO SCH (09:27)
[2021-04-18] MEDS: ACETAMINOPHEN 325MG TABLET PO PRN ×2 (09:27→21:47)
[2021-04-18 12:00] VITALS: BP 113/85
[2021-04-18 16:00] VITALS: BP 102/69
[2021-04-18 20:00] VITALS: BP 113/81
[2021-04-19] VITALS: BP 113/81
[2021-04-19] MEDS: TRAMADOL 50MG TABLET PO PRN ×3 (02:41→23:44)
[2021-04-19 04:00] VITALS: BP 119/86
[2021-04-19] MEDS: CHLORDIAZEPOXIDE 25MG CAPSULE PO SCH ×3 (06:23→21:14)
[2021-04-19 08:00] VITALS: BP 120/85
[2021-04-19] MEDS: ENOXAPARIN 40MG/0.4ML SYR SUBCUT SCH (09:07)
[2021-04-19] MEDS: AMLODIPINE 5MG TABLET PO SCH (09:08)
[2021-04-19] MEDS: NYSTATIN POWDER 15GM TOP SCH ×3 (09:08→17:44)
[2021-04-19 12:00] VITALS: BP 103/69
[2021-04-19 16:00] VITALS: BP 125/66
[2021-04-19 20:00] VITALS: BP 99/66
[2021-04-20] VITALS: BP 119/84
[2021-04-20] MEDS: LORAZEPAM 2MG/ML CPJ IV PRN (03:03)
[2021-04-20 04:00] VITALS: BP 107/73
[2021-04-20] MEDS: CHLORDIAZEPOXIDE 25MG CAPSULE PO SCH ×3 (05:56→21:01)
[2021-04-20 08:00] VITALS: BP 121/81
[2021-04-20] MEDS: AMLODIPINE 5MG TABLET PO SCH (09:22)
[2021-04-20] MEDS: NYSTATIN POWDER 15GM TOP SCH ×3 (09:23→17:00)
[2021-04-20] MEDS: ENOXAPARIN 40MG/0.4ML SYR SUBCUT SCH (09:23)
[2021-04-20] MEDS: TRAMADOL 50MG TABLET PO PRN (09:26)
[2021-04-20] MEDS: ACETAMINOPHEN 325MG TABLET PO PRN ×2 (09:26→15:28)
[2021-04-20 12:00] VITALS: BP 90/59
[2021-04-20 16:00] VITALS: BP 98/52
[2021-04-20 20:00] VITALS: BP 90/63
[2021-04-20 21:42] LABS: HEMATOCRIT. 34.6 % (42.0-52.0); HEMOGLOBIN. 11.4 g/dL (14.0-18.0); MEAN CORPUSCULAR HEMOGLOBIN 29.6 pg (28.0-32.0); MEAN CORPUSCULAR VOLUME 89.3 fL (80.0-94.0); MEAN PLATELET VOLUME 8.2 fl (7.4-10.4); PLATELET 194 x1000/uL (130-400); RED BLOOD CELL COUNT 3.87 mill/uL (4.7-6.1); RED CELL DISTRIBUTION WIDTH 20.3 % (11.6-14.6)
[2021-04-20 21:51] LABS: CHLORIDE 100 mEq/L (98-107)
[2021-04-20 22:15] LABS: PLATELET ESTIMATE NORMAL
[2021-04-21] VITALS (7 sets, daily range): BP systolic 96–130; BP diastolic 56–89
[2021-04-21] MEDS: ACETAMINOPHEN 325MG TABLET PO PRN (09:02)
[2021-04-21] MEDS: ENOXAPARIN 40MG/0.4ML SYR SUBCUT SCH (09:03)
[2021-04-21] MEDS: NYSTATIN POWDER 15GM TOP SCH ×3 (09:03→17:58)
[2021-04-21] MEDS: TRAMADOL 50MG TABLET PO PRN ×2 (13:18→21:30)
[2021-04-22] MEDS: TRAMADOL 50MG TABLET PO PRN ×3 (04:32→18:36)
[2021-04-22 04:58] VITALS: BP 121/83
[2021-04-22 08:00] VITALS: BP 96/67
[2021-04-22] MEDS: ENOXAPARIN 40MG/0.4ML SYR SUBCUT SCH (11:32)
[2021-04-22] MEDS: NYSTATIN POWDER 15GM TOP SCH ×2 (11:32→18:37)
[2021-04-22 12:00] VITALS: BP 83/58
[2021-04-22 16:00] VITALS: BP 88/61
[2021-04-22 20:00] VITALS: BP 107/65
[2021-04-23] VITALS: BP 120/85
[2021-04-23 04:00] VITALS: BP 116/83
[2021-04-23] MEDS: TRAMADOL 50MG TABLET PO PRN ×2 (06:34→21:28)
[2021-04-23 08:00] VITALS: BP 94/68
[2021-04-23] MEDS: NYSTATIN POWDER 15GM TOP SCH ×3 (09:56→17:45)
[2021-04-23] MEDS: ENOXAPARIN 40MG/0.4ML SYR SUBCUT SCH (09:56)
[2021-04-23] MEDS: ACETAMINOPHEN 325MG TABLET PO PRN ×2 (10:14→18:56)
[2021-04-23 20:00] VITALS: BP 95/72
[2021-04-24] VITALS: BP 106/72
[2021-04-24 04:00] VITALS: BP 106/75
[2021-04-24] MEDS: TRAMADOL 50MG TABLET PO PRN ×2 (05:20→11:56)
[2021-04-24 08:00] VITALS: BP 108/76
[2021-04-24] MEDS: ENOXAPARIN 40MG/0.4ML SYR SUBCUT SCH (08:40)
[2021-04-24] MEDS: NYSTATIN POWDER 15GM TOP SCH ×2 (08:41→13:01)
[2021-04-24 11:23] VITALS: BP 129/74
[2021-04-24 12:00] VITALS: BP 106/78
== END 2021-04-24 13:30 | DRG 425 ==
LOC: ER 16:21 → 6EST 20:44 → ENRESERV 23:14
PROVIDERS: ADMIT Internal Medicine; ATTEND Internal Medicine
DX: E87.6 Hypokalemia (principal); D69.6 Thrombocytopenia, unspecified; E87.1 Hypo-osmolality and hyponatremia; B36.8 Other specified superficial mycoses; D64.9 Anemia, unspecified; E66.9 Obesity, unspecified; F10.239 Alcohol dependence with withdrawal, unspecified; E87.8 Other disorders of electrolyte and fluid balance, not elsewhere classified; R21 Rash and other nonspecific skin eruption; R74.01 Elevation of levels of liver transaminase levels; Y90.0 Blood alcohol level of less than 20 mg/100 ml; I10 Essential (primary) hypertension; S70.212A Abrasion, left hip, initial encounter; X58.XXXA Exposure to other specified factors, initial encounter; Y93.89 Activity, other specified; Y92.89 Other specified places as the place of occurrence of the external cause; Y99.8 Other external cause status; Z68.29 Body mass index [BMI] 29.0-29.9, adult; Z79.899 Other long term (current) drug therapy; Z82.49 Family history of ischemic heart disease and other diseases of the circulatory system; Z71.41 Alcohol abuse counseling and surveillance of alcoholic
CPT/HCPCS: 36415; 80048; 80053; 80061; 80305; 80320; 81003; 82040; 84134; 85025; 93970; 97116; 97162; 97166; 97530; 99285; J1650; J2060; J3411; J3490; J7030; J7070; U0003; U0005; G0480